=== PATIENT | male | born 1995 | race Caucasian/White ===

== ENCOUNTER 2019-06-21 21:59 | Emergency (ER) | payer OTHER ==
[2019-06-21] MEDS ORDERED: IBUPROFEN 600 MG TABLET PO STA (23:06)
[2019-06-21 23:18] VITALS: BP 120/85
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
== END 2019-06-21 23:19 | disposition home or self-care (01) ==
LOC: ED 21:59
DX: S39.012A Strain of muscle, fascia and tendon of lower back, initial encounter (principal); V49.49XA Driver injured in collision with other motor vehicles in traffic accident, initial encounter
CPT/HCPCS: 99282; 99284; A9270

== ENCOUNTER 2020-01-28 08:09 | Emergency (ER) | payer OTHER ==
[2020-01-28 08:39] LABS: RAPID STREP SCREEN Negative (Negative)
[2020-01-28] MEDS ORDERED: ONDANSETRON ODT 4 MG TABLET TL STA (08:51)
--- NOTE | 2020-01-28 08:55 | ED Physician Documentation ---
History of Present Illness - Stated complaint Stated Complaint: COUGH/SORE THROAT - Chief complaint Chief Complaint: Heent - History obtained from History obtained from: Patient - Additonal information Additional information: Patient comes emergency department complaining of sore throat, runny nose, vomiting, fevers, and aches that started yesterday. Patient states that the vomiting actually did not start till later in the Evening, but that he did not feel well yesterday. He states that he still feeling a little nauseated now and has not eaten anything today. He denies any abdominal pain. No chest pain. No shortness of breath. Patient states he is otherwise healthy. He states that 1 of his work mates was sick with something similar and he believes he got this from him. Patient denies any other complaints at this time. He is not sure if he had a flu shot this year or not. Review of Systems Ten Systems: 10 systems reviewed and negative Constitutional: reports: Fever, Chills, Myalgias Eyes: reports: Reviewed and negative Ears: reports: Reviewed and negative Nose: reports: Rhinorrhea / runny nose, Congestion Throat: reports: Sore throat Cardiac: reports: Reviewed and negative Respiratory: reports: Cough GI: reports: Nausea, Vomiting : reports: Reviewed and negative Skin: reports: Reviewed and negative Musculoskeletal: reports: Reviewed and negative Neurologic: reports: Reviewed and negative Psychiatric: reports: Reviewed and negative Endocrine: reports: Reviewed and negative Immunocompromised: reports: Reviewed and negative PD PAST MEDICAL HISTORY - Past Medical History Cardiovascular: None Respiratory: None Neuro: None Endocrine/Autoimmune: None GI: None : None HEENT: None Psych: None Musculoskeletal: None Derm: None - Past Surgical History Past Surgical History: No - Present Medications Home Medications: Ambulatory Orders Medication Instructions Recorded Confirmed Ondansetron Odt [Zofran] 4 mg TL Q6H PRN #10 tablet 01/28/20 - Allergies Allergies/Adverse Reactions: Allergies Allergy/AdvReac Type Severity Reaction Status Date / Time No Known Drug Allergies Allergy Verified 01/28/20 08:16 - Social History Does the pt smoke?: No Smoking Status: Never smoker Does the pt drink ETOH?: Yes Does the pt have substance abuse?: No - Immunizations Immunizations are current?: Yes - POLST Patient has POLST: No PD ED PE NORMAL - Vitals Vital signs reviewed: Yes - General General: Alert and oriented X 3, No acute distress - HEENT HEENT: Atraumatic, PERRL, EOMI, Moist mucous membranes, Pharynx benign - Neck Neck: Supple, no meningeal sign, Other (Mild left anterior cervical lymphadenopathy.) - Cardiac Cardiac: RRR, No murmur - Respiratory Respiratory: No respiratory distress, Clear bilaterally - Abdomen Abdomen: Soft, Non tender, Non distended - Derm Derm: Normal color, Warm and dry, No rash - Extremities Extremities: No deformity - Neuro Neuro: Alert and oriented X 3, 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, No motor deficit, No sensory deficit - Psych Psych: Normal mood, Normal affect Results - Vitals Vitals: Vital Signs - 24 hr 01/28/20 01/28/20 08:14 09:22 Temperature 36.9 C Heart Rate 96 88 Respiratory 18 14 Rate Blood Pressure 128/79 124/84 H O2 Saturation 97 97 Oxygen O2 Source Room air - Labs Labs: Laboratory Tests 01/28/20 01/28/20 08:20 08:20 Influenza A (Rapid) POSITIVE H Influenza B (Rapid) Negative Group A Strep Rapid Negative PD MEDICAL DECISION MAKING - ED course Complexity details: reviewed results, re-evaluated patient, considered differential, d/w patient ED course: Patient was worked up with fluids and strep swabs and given a dose of Zofran in the emergency department.He was found to be positive for influenza A. Discussed the self-limited nature of this illness with him and symptomatic management at home. We discussed the usual indications for return. Departure - Departure Disposition: 01 Home, Self Care Clinical Impression: Influenza A Condition: Good Instructions: ED Flu Prescriptions: Ondansetron Odt [Zofran] 4 mg TL Q6H PRN #10 tablet PRN Reason: Nausea / Vomiting Comments: Your influenza test was positive. This is a viral illness which your body will get rid of on its own in the next 1 to 2 weeks. You may experience fevers, sore throat, cough, runny nose, and body aches, as well as in some cases, nausea. You may take the nausea medication as needed and also may take ibuprofen and Tylenol for fevers or body aches. Drink plenty of fluids and stay home from work until you are feeling better and you have been fever-free for at least 24 hours. Forms: Activity restrictions Discharge Date/Time: 01/28/20 09:23
[2020-01-28 09:23] VITALS: BP 124/84
== END 2020-01-28 09:23 | disposition home or self-care (01) ==
LOC: ED 08:09
DX: J10.1 Influenza due to other identified influenza virus with other respiratory manifestations (principal)
CPT/HCPCS: 87070; 87275; 87276; 87430; 99283; 99284; Q0162